=== PATIENT | male | born 1995 | race Native Hawaiian/Other Pacific Islander ===

== ENCOUNTER → 2019-04-13 | Outpatient (CLI) | payer OTHER | LOC: MRI 10:04 | DX: S83.8X1A Sprain of other specified parts of right knee, initial encounter (principal); M76.891 Other specified enthesopathies of right lower limb, excluding foot; M79.4 Hypertrophy of (infrapatellar) fat pad; M54.16 Radiculopathy, lumbar region; X58.XXXA Exposure to other specified factors, initial encounter; Y93.89 Activity, other specified; Y92.89 Other specified places as the place of occurrence of the external cause; Y99.8 Other external cause status ==